=== PATIENT | female | born 1960 | race Asian ===

== ENCOUNTER 2022-02-25 08:11 | Inpatient (IN) | payer MEDICAID ==
[2022-02-25] VITALS (34 sets, daily range): BP systolic 97–142; BP diastolic 63–92
[~2022-02-25] VITALS: Ht 147.3 cm; Wt 53.6 kg
[2022-02-25] MEDS ORDERED: ASPirin 325 MG TAB PO ONE (08:30)
[2022-02-25] MEDS ORDERED: NITROGLYCERIN 0.4 MG SL TAB SL ONE ×2 (08:41→08:45)
[2022-02-25] MEDS ORDERED: HEPARIN SODIUM (PORCINE) 5000 UNITS/ML 1ML VIAL ONE ×2 (08:41→10:22)
[2022-02-25] MEDS ORDERED: CLOPIDOGREL BISULFATE 75 MG TAB PO ONE (08:45)
[2022-02-25] MEDS ORDERED: HEPARIN SODIUM (PORCINE) 5000 UNITS/ML 1ML VIAL IV ONE ×3 (08:45→21:15)
[2022-02-25] MEDS ORDERED: ASPirin-EC 325mg tab PO ONE (08:45)
[2022-02-25 08:59] LABS: Basophils # (auto) 0 10 ^3/uL (0-0.2); Basophils % (auto) 0.4 % (0.0-2.0); Eosinophils # (auto) 0 10 ^3/uL (0-0.8); Eosinophils % (auto) 0.1 % (0.0-7.0); Hematocrit 41.9 % (36.0-46.0); Hemoglobin 13.9 g/dL (12.2-16.2); Lymphocytes # (auto) 1.1 10 ^3/uL (0.4-5.4); Lymphocytes % (auto) 10.7 % (10.0-50.0); Mean Corpuscular Hemoglobin 28.6 pg (28.0-32.0); Mean Corpuscular Hgb Conc. 33.1 g/dL (32.0-36.0); Mean Corpuscular Volume 86.2 fL (80.0-100.0); Monocytes # (auto) 0.3 10 ^3/uL (0-1.3); Monocytes % (auto) 3.4 % (0.0-12.0); Neutrophils # (auto) 8.6 10 ^3/uL (1.6-8.6); Neutrophils % (auto) 85.4 % (37.0-80.0); Red Blood Cells 4.86 10^6/uL (4.0-5.20); Red Cell Distribution Width 13.2 % (11.8-14.3); White Blood Cell 10.1 10^3/uL (4.4-10.8)
[2022-02-25 09:05] LABS: INR 0.95 (0.9-1.15); Partial Thromboplastin Time 22.4 sec (24.6-33.4)
[2022-02-25 10:03] LABS: Albumin 3.3 g/dL (3.4-5.0); Calcium 8.8 mg/dL (8.5-10.1); Magnesium 2.3 mg/dL (1.6-2.6); Potassium 3.7 mmol/L (3.5-5.1)
[2022-02-25 10:07] LABS: BUN/Creatinine Ratio 25.9; Bilirubin, Total 0.4 mg/dL (0.2-1.0)
[2022-02-25] MEDS ORDERED: ANGIOMAX 250 MG VIAL IV ONE (10:22)
[2022-02-25] MEDS ORDERED: SODIUM CHL 0.9% 50 ML ONE (10:23)
[2022-02-25] MEDS ORDERED: IODIXANOL 320MG/ML 100ML BTL IV ONE (10:23)
[2022-02-25] MEDS ORDERED: fentaNYL CITRATE 100 MCG/2 ML VL ONE (10:23)
[2022-02-25] MEDS ORDERED: MIDAZOLAM HCL 2MG/2ML 2ml VIAL (1mg/ml) ONE (10:23)
[2022-02-25] MEDS ORDERED: VERAPAMIL 2.5MG/ML INJ 2ML VIAL IV ONE (10:23)
[2022-02-25] MEDS ORDERED: NITROGLYCERIN 50MG/250ML 250 ML IV ONE (10:45)
[2022-02-25] MEDS ORDERED: ONDANSETRON HCL 4 MG/2 ML VIAL ONE (11:01)
[2022-02-25] MEDS ORDERED: HEPARIN DRIP/D5W 100UNITS/ML 250 ML IV SCH ×2 (12:45→21:15)
[2022-02-25] MEDS ORDERED: NITROGLYCERIN 50MG/250ML 250 ML IV SCH (12:45)
[2022-02-25] MEDS ORDERED: NITROGLYCERIN 0.4 MG SL TAB SL PRN (12:45)
[2022-02-25] MEDS ORDERED: ACETAMINOPHEN 500 MG TAB PO PRN (12:45)
[2022-02-25] MEDS ORDERED: DOCUSATE SOD 100 MG CAP PO PRN (12:45)
[2022-02-25] MEDS ORDERED: HYDROcodone-ACET 5/325MG TAB PO PRN (12:45)
[2022-02-25] MEDS ORDERED: ALPRAZolam 0.25 MG TAB PO PRN (12:45)
[2022-02-25] MEDS ORDERED: MORPHINE SULFATE INJ 2 MG/ml SYRG IV PRN ×2 (12:45)
[2022-02-25] MEDS ORDERED: ONDANSETRON HCL 4 MG/2 ML VIAL IV PRN (12:45)
[2022-02-25] MEDS ORDERED: cefTRIAXone 1GM/50ML D5W 50 ML IV SCH (15:00)
[2022-02-25 20:55] LABS: INR 0.98 (0.9-1.15); Partial Thromboplastin Time 34.2 sec (24.6-33.4)
== END 2022-02-25 23:32 | disposition short-term general hospital (02) | DRG 190 ==
LOC: ER 08:11 → TELE 12:43 → DOU IN ICU 19:31
PROVIDERS: ADMIT Nurse Practitioner Acute Care; ATTEND Nurse Practitioner Acute Care
PROC: 4A023N7 Measurement of Cardiac Sampling and Pressure, Left Heart, Percutaneous Approach (ICD-10-PCS; principal; 2022-02-25)
PROC: B211YZZ Fluoroscopy of Multiple Coronary Arteries using Other Contrast (ICD-10-PCS; 2022-02-25)
PROC: B215YZZ Fluoroscopy of Left Heart using Other Contrast (ICD-10-PCS; 2022-02-25)
DX: I25.10 Atherosclerotic heart disease of native coronary artery without angina pectoris (principal); I21.A1 Myocardial infarction type 2; J96.00 Acute respiratory failure, unspecified whether with hypoxia or hypercapnia; Z95.1 Presence of aortocoronary bypass graft; R73.9 Hyperglycemia, unspecified; Z20.822 Contact with and (suspected) exposure to COVID-19; Z82.49 Family history of ischemic heart disease and other diseases of the circulatory system
CPT/HCPCS: 36415; 71045; 80053; 83036; 83735; 83880; 84484; 85025; 85610; 85730; 87081; 87426; 93005; 93306; 93458; 96374; 99152; C1887; G0378; J2250; J2405; Q9967